=== PATIENT | female | born 1960 | race Caucasian/White ===

== ENCOUNTER 2022-08-18 02:54 | Inpatient (IN) | payer MEDICARE ==
[2022-08-18] MEDS ORDERED: SODIUM CHLORIDE 0.9% 1,000 ML IV STA (03:03)
--- NOTE | 2022-08-18 03:13 | ED ---
General Adult HPI - General Chief complaint: Abdominal Pain Stated complaint: Abdominal Pain Time Seen by Provider: 08/18/22 02:57 Source: patient, EMS, RN notes reviewed, old records reviewed Mode of arrival: EMS Limitations: no limitations - History of Present Illness Initial comments: 62-year-old female presenting with crampy lower abdominal pain. Symptoms began proximally 9 hours prior to presentation. Patient states she's had similar episodes in the past. She had a normal bowel movement just prior to arrival here and no vomiting. Pain comes and goes but is increasing in intensity. This is in her lower abdomen. No upper abdominal pain, no chest pain. No fever. No dysuria or hematuria. - Related Data Allergies Allergy/AdvReac Type Severity Reaction Status Date / Time Sulfa (Sulfonamide Allergy Unknown Verified 08/18/22 03:16 Antibiotics) Review of Systems ROS Statement: Those systems with pertinent positive or pertinent negative responses have been documented in the HPI. ROS Other: All systems not noted in ROS Statement are negative. Past Medical History Past Medical History: Thyroid Disorder History of Any Multi-Drug Resistant Organisms: None Reported Past Surgical History: Cholecystectomy, Hysterectomy, Tonsillectomy Additional Past Surgical History / Comment(s): Knee replaced Past Psychological History: No Psychological Hx Reported Smoking Status: Unknown if ever smoked Past Alcohol Use History: None Reported Past Drug Use History: None Reported General Exam Limitations: no limitations General appearance: alert, in no apparent distress Head exam: Present: atraumatic, normocephalic Eye exam: Present: normal appearance, PERRL ENT exam: Present: normal exam Neck exam: Present: normal inspection. Absent: tenderness, meningismus Respiratory exam: Present: normal lung sounds bilaterally. Absent: respiratory distress, wheezes Cardiovascular Exam: Present: normal rhythm, bradycardia GI/Abdominal exam: Present: soft. Absent: distended, tenderness, guarding, rebound, rigid Extremities exam: Present: normal inspection, normal capillary refill Neurological exam: Present: alert, oriented X3 Psychiatric exam: Present: anxious Skin exam: Present: diaphoretic Course Vital Signs 08/18/22 08/18/22 08/18/22 02:55 03:27 03:32 Temperature 98.5 F Pulse Rate 52 L 68 Respiratory 16 Rate Blood Pressure 94/58 105/58 112/62 O2 Sat by Pulse 97 95 Oximetry 08/18/22 04:12 Temperature Pulse Rate 69 Respiratory 16 Rate Blood Pressure 126/64 O2 Sat by Pulse 97 Oximetry Medical Decision Making - Medical Decision Making Was pt. sent in by a medical professional or institution (DEB Grubbs, FLOORING MACHINE OPERATOR, urgent care, hospital, or halfway...) When possible be specific @ -No Did you speak to anyone other than the patient for history (EMS, parent, family, police, friend...)? What history was obtained from this source @ -No Did you review nursing and triage notes (agree or disagree)? Why? @ -I reviewed and agree with nursing and triage notes Were old charts reviewed (outside hosp., previous admission, EMS record, old EKG, old radiological studies, urgent care reports/EKG's, halfway records)? Report findings @ -No old charts were reviewed Differential Diagnosis (chest pain, altered mental status, abdominal pain women, abdominal pain men, vaginal bleeding, weakness, fever, dyspnea, syncope, headache, dizziness, GI bleed, back pain, seizure, CVA, palpatations, mental health, musculoskeletal)? @ -not applicable EKG interpreted by me (3pts min.). @ -EKG: Sinus rhythm rate of 63, TN interval 159, QRS duration 114, QTC [address] segment elevation. X-rays interpreted by me (1pt min.). @ -None done CT interpreted by me (1pt min.). @ CT showing dilated small bowel with transition point consistent with small bowel obstruction U/S interpreted by me (1pt. min.). @ -None done What testing was considered but not performed or refused? (CT, X-rays, U/S, labs)? Why? @ -None What meds were considered but not given or refused? Why? @ -None Did you discuss the management of the patient with other professionals (professionals i.e. DEB Grubbs, FLOORING MACHINE OPERATOR, lab, RT, psych nurse, oncology social worker, massage therapy instructor, teacher, aerospace engineer officer armament, registered nurse hh case manager)? Give summary @ -Dr. Anderson Was smoking cessation discussed for >3mins.? @ -No Was critical care preformed (if so, how long)? @ -No Were there social determinants of health that impacted care today? How? (Homelessness, low income, unemployed, alcoholism, drug addiction, transportation, low edu. Level, literacy, decrease access to med. care, alf, rehab)? @ -No Was there de-escalation of care discussed even if they declined (Discuss DNR or withdrawal of care, Hospice)? DNR status @ -No What co-morbidities impacted this encounter? (DM, HTN, Smoking, COPD, CAD, Cancer, CVA, ARF, Chemo, Hep., AIDS, mental health diagnosis, sleep apnea, morbid obesity)? @ -None Was patient admitted / discharged? Hospital course, mention meds given and route, prescriptions, significant lab abnormalities, going to OR and other pertinent info. @ 62-year-old female presenting with crampy lower abdominal pain over the past 9 hours. Patient is initially hypotensive and bradycardic, I suspect this is from vagal episode secondary to pain. She becomes normotensive with normal heart rate. She has no vomiting. Normal laboratory testing including CBC, CMP, lactic acid. Urinalysis pending. CT shows dilated small bowel with transition point consistent with obstruction. NG tube will be placed in the emergency department. Patient will be kept nothing by mouth, she'll receive IV fluids and IV pain medication. She'll be admitted to internal medicine with general surgery on consult. Undiagnosed new problem with uncertain prognosis? @ -No Drug Therapy requiring intensive monitoring for toxicity (Heparin, Nitro, Insulin, Cardizem)? @ -No Were any procedures done? @ -No Diagnosis/symptom? @ -[Small bowel obstruction Acute, or Chronic, or Acute on Chronic? @ -Acute Uncomplicated (without systemic symptoms) or Complicated (systemic symptoms)? @ -[Complicated Side effects of treatment? @ -No Exacerbation, Progression, or Severe Exacerbation? @ -No Poses a threat to life or bodily function? How? (Chest pain, USA, NV, pneumonia, PE, COPD, DKA, ARF, appy, cholecystitis, CVA, Diverticulitis, Homicidal, Suicidal, threat to staff... and all critical care pts) @ -[Yes, bowel ischemia, sepsis - Lab Data Result diagrams: 08/18/22 03:25 08/18/22 03:25 Lab Results 08/18/22 08/18/22 08/18/22 Range/Units 03:25 03:25 03:25 WBC 9.2 (3.8-10.6) k/uL RBC 4.41 (3.80-5.40) m/uL Hgb 13.2 (11.4-16.0) gm/dL Hct 40.9 (34.0-46.0) % MCV 92.8 (80.0-100.0) fL MCH 30.0 (25.0-35.0) pg MCHC 32.4 (31.0-37.0) g/dL RDW 14.1 (11.5-15.5) % Plt Count 230 (150-450) k/uL MPV 7.6 Neutrophils % 78 % Lymphocytes % 15 % Monocytes % 3 % Eosinophils % 2 % Basophils % 0 % Neutrophils # 7.2 (1.3-7.7) k/uL Lymphocytes # 1.4 (1.0-4.8) k/uL Monocytes # 0.3 (0-1.0) k/uL Eosinophils # 0.2 (0-0.7) k/uL Basophils # 0.0 (0-0.2) k/uL PT 10.1 (9.0-12.0) sec INR 0.9 (<1.2) APTT 19.1 L (22.0-30.0) sec Sodium 138 (137-145) mmol/L Potassium 4.1 (3.5-5.1) mmol/L Chloride 105 (98-107) mmol/L Carbon Dioxide 26 (22-30) mmol/L Anion Gap 7 mmol/L BUN 16 (7-17) mg/dL Creatinine 0.74 (0.52-1.04) mg/dL Est GFR (CKD-EPI)AfAm >90 (>60 ml/min/1.73 sqM) Est GFR (CKD-EPI)NonAf 88 (>60 ml/min/1.73 sqM) Glucose 167 H (74-99) mg/dL POC Glucose (mg/dL) (70-110) mg/dL POC Glu Line Worker ID Plasma Lactic Acid [place] (0.7-2.0) mmol/L Calcium 9.5 (8.4-10.2) mg/dL Total Bilirubin 1.4 H (0.2-1.3) mg/dL AST 27 (14-36) U/L ALT 32 (4-34) U/L Alkaline Phosphatase 58 (38-126) U/L Total Protein 8.0 (6.3-8.2) g/dL Albumin 3.9 (3.5-5.0) g/dL Amylase 49 (30-110) U/L Lipase 38 (23-300) U/L 08/18/22 08/18/22 Range/Units 03:25 03:26 WBC (3.8-10.6) k/uL RBC (3.80-5.40) m/uL Hgb (11.4-16.0) gm/dL Hct (34.0-46.0) % MCV (80.0-100.0) fL MCH (25.0-35.0) pg MCHC (31.0-37.0) g/dL RDW (11.5-15.5) % Plt Count (150-450) k/uL MPV Neutrophils % % Lymphocytes % % Monocytes % % Eosinophils % % Basophils % % Neutrophils # (1.3-7.7) k/uL Lymphocytes # (1.0-4.8) k/uL Monocytes # (0-1.0) k/uL Eosinophils # (0-0.7) k/uL Basophils # (0-0.2) k/uL PT (9.0-12.0) sec INR (<1.2) APTT (22.0-30.0) sec Sodium (137-145) mmol/L Potassium (3.5-5.1) mmol/L Chloride (98-107) mmol/L Carbon Dioxide (22-30) mmol/L Anion Gap mmol/L BUN (7-17) mg/dL Creatinine (0.52-1.04) mg/dL Est GFR (CKD-EPI)AfAm (>60 ml/min/1.73 sqM) Est GFR (CKD-EPI)NonAf (>60 ml/min/1.73 sqM) Glucose (74-99) mg/dL POC Glucose (mg/dL) 164 H (70-110) mg/dL POC Glu Line Worker ID Limon, Kirsten Plasma Lactic Acid Mayo 1.3 (0.7-2.0) mmol/L Calcium (8.4-10.2) mg/dL Total Bilirubin (0.2-1.3) mg/dL AST (14-36) U/L ALT (4-34) U/L Alkaline Phosphatase (38-126) U/L Total Protein (6.3-8.2) g/dL Albumin (3.5-5.0) g/dL Amylase (30-110) U/L Lipase (23-300) U/L Disposition Clinical Impression: Small bowel obstruction Disposition: ADMITTED IP TO THIS HOSP Condition: Stable Is patient prescribed a controlled substance at d/c from ED?: No Time of Disposition: 04:54
[2022-08-18] MEDS ORDERED: fentaNYL (PF) 50 MCG/ML 2 ML AMP IVP STA (03:26)
[2022-08-18 03:29] LABS: Glucose,Whole Blood 164 mg/dL (70-110)
[2022-08-18 03:38] LABS: Basophils % (A) 0 %; Eosinophils # (A) 0.2 k/uL (0-0.7); Eosinophils % (A) 2 %; HCT 40.9 % (34.0-46.0); HGB 13.2 gm/dL (11.4-16.0); Lymphocytes # (A) 1.4 k/uL (1.0-4.8); Lymphocytes % (A) 15 %; MCHC 32.4 g/dL (31.0-37.0); MCV 92.8 fL (80.0-100.0); Mean Platelet Volume 7.6; Monocytes # (A) 0.3 k/uL (0-1.0); Monocytes % (A) 3 %; Neutrophils # (A) 7.2 k/uL (1.3-7.7); Neutrophils % (A) 78 %; Platelet Count 230 k/uL (150-450); RBC 4.41 m/uL (3.80-5.40); RDW 14.1 % (11.5-15.5); WBC 9.2 k/uL (3.8-10.6)
[2022-08-18 03:42] LABS: ALT 32 U/L (4-34); AST 27 U/L (14-36); African American GFR (CKD) >90 (>60 ml/min/1.73 sqM); Albumin 3.9 g/dL (3.5-5.0); Alkaline Phosphatase 58 U/L (38-126); Amylase 49 U/L (30-110); Anion Gap 7 mmol/L; Blood Urea Nitrogen 16 mg/dL (7-17); Calcium 9.5 mg/dL (8.4-10.2); Carbon Dioxide 26 mmol/L (22-30); Chloride 105 mmol/L (98-107); Glucose 167 mg/dL (74-99); Lipase 38 U/L (23-300); Non-African American GFR(CKD) 88 (>60 ml/min/1.73 sqM); Potassium 4.1 mmol/L (3.5-5.1); Sodium 138 mmol/L (137-145); Total Bilirubin 1.4 mg/dL (0.2-1.3)
[2022-08-18 03:47] LABS: INR 0.9 (<1.2); Prothrombin Time 10.1 sec (9.0-12.0)
[2022-08-18 04:05] LABS: Partial Thromboplastin Time 19.1 sec (22.0-30.0)
--- NOTE | 2022-08-18 04:24 | CT ---
EXAM: CT Abdomen and Pelvis With Intravenous Contrast CLINICAL HISTORY: ITS.REASON CT Reason: abdominal pain TECHNIQUE: Axial computed tomography images of the abdomen and pelvis with intravenous contrast. CTDI is 69.28 mGy and DLP is 3731 mGy-cm. This CT exam was performed using one or more of the following dose reduction techniques: automated exposure control, adjustment of the mA and/or kV according to patient size, and/or use of iterative reconstruction technique. COMPARISON: None FINDINGS: Lung bases: Unremarkable. No mass. No consolidation. ABDOMEN: Liver: Hepatic steatosis. Mild hepatomegaly. Gallbladder and bile ducts: Cholecystectomy. No ductal dilation. Pancreas: Unremarkable. No mass. No ductal dilation. Spleen: Unremarkable. No splenomegaly. Adrenals: Unremarkable. No mass. Kidneys and ureters: Retroaortic left renal vein. No hydronephrosis or obstructing stone. Stomach and bowel: Dilated fluid and gas-filled small bowel loops with transition point in the left lower anterior abdomen, compatible with small bowel obstruction. Decompressed ileal small bowel. Diverticulosis without evidence of diverticulitis. PELVIS: Appendix: Normal appendix. Bladder: Unremarkable. No mass. Reproductive: Unremarkable as visualized. ABDOMEN and PELVIS: Intraperitoneal space: Small amount of interloop fluid and pelvic fluid. No free air. Bones/joints: Mild curvature of the spine. Degenerative changes of the spine. Minimal retrolisthesis of L3 on L4. No acute fracture. No dislocation. Soft tissues: Unremarkable. Vasculature: Phleboliths in the pelvis. Lymph nodes: Unremarkable. No enlarged lymph nodes. IMPRESSION: 1. Dilated fluid and gas-filled small bowel loops with transition point in the left lower anterior abdomen, compatible with small bowel obstruction. 2. Small amount of interloop fluid and pelvic fluid. 3. Hepatic steatosis. Mild hepatomegaly.
[2022-08-18] MEDS ORDERED: HYDROmorphone 0.5 MG/0.5 ML SYRINGE IVP PRN (04:27)
[2022-08-18] MEDS ORDERED: NALOXONE 0.4 MG/ML 1 ML VIAL IV PRN (04:27)
[2022-08-18] MEDS ORDERED: ONDANSETRON 4 MG/2 ML VIAL IVP PRN (04:27)
[2022-08-18] MEDS: SODIUM CHLORIDE 0.9% 1,000 ML IV SCH ×2 (04:48→13:41)
[2022-08-18] MEDS ORDERED: PIPERACILLIN-TAZOBACTAM 3.375 GM in SODIUM CHLORIDE 0.9% 100 ML IVPB STA (04:54)
[2022-08-18 05:12] LABS: Appearance,Urine Clear (Clear); Bilirubin,Urine Negative (Negative); Blood,Urine Negative (Negative); Color,Urine Light Yellow; Glucose,Urine (UA) Negative (Negative); Ketones,Urine Negative (Negative); Leukocyte Esterase,Urine Moderate (Negative); Mucus,Urine Rare /hpf; Nitrite,Urine Negative (Negative); PH, Urine 5.5 (5.0-8.0); Protein,Urine Trace (Negative); RBC,Urine 4 /hpf (0-5); Squamous Epithelial Cell,Urine 4 /hpf (0-4); Urobilinogen,Urine <2.0 mg/dL (<2.0); WBC,Urine 10 /hpf (0-5)
[2022-08-18 05:21] LABS: Specific Gravity,Urine >1.050 (1.001-1.035)
--- NOTE | 2022-08-18 05:30 | XR ---
EXAMINATION TYPE: XR chest 1V portable DATE OF EXAM: 08/18/2022 CLINICAL HISTORY: NG tube placement. TECHNIQUE: Single AP portable upright view of the chest is obtained. COMPARISON: None. FINDINGS: Cardiac silhouette size upper limits of normal. Patchy bibasilar opacity favors atelectati c change. Upper lungs are clear without pneumothorax. Osseous structures are intact. Nasogastric tube is identified, tip cannot be distinctly seen due to portable technique and large body habitus. IMPRESSION: As above. Advise repeat KUB image to further evaluate nasogastric tip.
--- NOTE | 2022-08-18 05:49 | P.HPIM ---
History of Present Illness H&P Date: 08/18/22 The patient is a 62-year-old female with a PMH of hypothyroidism who presents to the emergency room with complaints of abdominal pain and nausea. The patient reports that her symptoms started earlier tonight at around 6 PM suddenly with diffuse severe abdominal discomfort, rated an 8 out of 10, constant, cramping in nature, nonradiating, with no alleviating or exacerbating features. She reports prior history of occasional abdominal cramps with it only lasts for a few minutes and then resolved spontaneously. She states that this time however the pain is much more severe. She reports prior history of cholecystectomy and hysterectomy. She reports nausea without vomiting and reports having a normal bowel movement just prior to arrival. She denied experiencing fever, chills, cough, chest pain, shortness of breath. In the emergency room, CT abdomen and pelvis revealed dilated fluid and gas filled small bowel loops with transition point, consistent with small bowel obstruction. There was also hepatic steatosis with mild hepatomegaly. EKG had revealed sinus rhythm at 63 bpm with no anterior fascicular block and poor R- wave progression as reviewed by me. Laboratory evaluation was remarkable for glucose 167, total bilirubin 0.4, unremarkable UA. ED documentation reviewed and case discussed with ED provider. Review of systems: Pertinent positives and negatives as discussed in HPI, a complete review of systems was performed and all other systems are negative. Physical examination: Vital signs reviewed General: non toxic, no distress, appears at stated age, morbidly obese Derm: no unusual rashes/lesions, warm Head: atraumatic, normocephalic, symmetric Eyes: EOMI, no lid lag, anicteric sclera, pupils equal round reactive to light ENT: Nose and ears atraumatic Neck: No cervical lymphadenopathy, trachea midline, supple Mouth: no lip lesion, mucus membranes moist Cardiovascular: S1S2 reg, no murmur, positive dorsalis pedis pulse bilateral, trace bilateral lower extremity pitting edema Lungs: CTA bilateral, no rhonchi, no rales, no accessory muscle use Abdominal: soft, mild diffuse tenderness, no guarding Ext: muscle strength 5 out of 5 in all 4 extremities grossly, no gross muscle atrophy, no contractures, Neuro: CN II-XI grossly intact, no gross focal neuro deficits Psych: Alert, oriented, appropriate affect Assessment: Small bowel obstruction Hyperglycemia Hypothyroidism Imaging: CT abdomen and pelvis revealed dilated fluid and gas filled small bowel loops with transition point, consistent with small bowel obstruction. There was also hepatic steatosis with mild hepatomegaly. EKG had revealed sinus rhythm at 63 bpm with no anterior fascicular block and poor R-wave progression as reviewed by me. Data Review: Laboratory evaluation was remarkable for glucose 167, total bilirubin 0.4, un remarkable UA. ED documentation reviewed and case discussed with ED provider. Plan: Continue with NGT with suction for decompression Continue with IV fluids with normal saline 130 mL/hr Nothing by mouth Pain control General surgery consulted Check A1C DVT prophylaxis: Heparin subq The patient is admitted with an anticipated greater than 2 midnight stay for evaluation of SBO CODE STATUS: Full Code Discussed with: Patient Anticipated discharge place: Home Past Medical History Past Medical History: Thyroid Disorder History of Any Multi-Drug Resistant Organisms: None Reported Past Surgical History: Cholecystectomy, Hysterectomy, Tonsillectomy Additional Past Surgical History / Comment(s): Knee replaced Past Psychological History: No Psychological Hx Reported Smoking Status: Unknown if ever smoked Past Alcohol Use History: None Reported Past Drug Use History: None Reported - Past Family History Father Family Medical History: Coronary Artery Disease (CAD) Medications and Allergies Allergies Allergy/AdvReac Type Severity Reaction Status Date / Time Sulfa (Sulfonamide Allergy Unknown Verified 08/18/22 03:16 Antibiotics) Physical Exam Vitals: Vital Signs Temp Pulse Resp BP Pulse Ox 08/18/22 04:12 69 16 126/64 97 08/18/22 03:32 68 112/62 95 08/18/22 03:27 105/58 08/18/22 02:55 98.5 F 52 L 16 94/58 97 Intake and Output 08/17/22 08/17/22 08/18/22 14:59 22:59 06:59 Other: Weight 149.685 kg Results CBC & Chem 7: 08/18/22 03:25 08/18/22 03:25 Labs: Abnormal Lab Results - Last 24 Hours (Table) 08/18/22 08/18/22 08/18/22 Range/Units 03:25 03:25 03:26 APTT 19.1 L (22.0-30.0) sec Glucose 167 H (74-99) mg/dL POC Glucose (mg/dL) 164 H (70-110) mg/dL Total Bilirubin 1.4 H (0.2-1.3) mg/dL Ur Specific [place] (1.001-1.035) Urine Protein (Negative) Ur Leukocyte Esterase (Negative) Urine WBC (0-5) /hpf Urine Mucus (None) /hpf 08/18/22 Range/Units 05:00 APTT (22.0-30.0) sec Glucose (74-99) mg/dL POC Glucose (mg/dL) (70-110) mg/dL Total Bilirubin (0.2-1.3) mg/dL Ur Specific [place] >1.050 H (1.001-1.035) Urine Protein Trace H (Negative) Ur Leukocyte Esterase Moderate H (Negative) Urine WBC 10 H (0-5) /hpf Urine Mucus Rare H (None) /hpf
[2022-08-18] MEDS: HYDROmorphone 1 MG/ML 1 ML SYRINGE IVP PRN ×2 (07:34→11:28)
--- NOTE | 2022-08-18 09:55 | P.GSCN ---
History of Present Illness Consult date: 08/18/22 Reason for Consult: Small bowel obstruction History of present illness: This is a 62-year-old female who was admitted through the emergency room with complaints of abdominal pain and nausea. Patient's workup found evidence of a small bowel obstruction. Patient has a transition point in the left lower quadrant. Patient's. History of laparoscopic ostectomy and open hysterectomy. Currently she has minimal abdominal pain and denies any nausea. Her nasogastric tube has bilious output. Past Medical History Past Medical History: Thyroid Disorder History of Any Multi-Drug Resistant Organisms: None Reported Past Surgical History: Cholecystectomy, Hysterectomy, Tonsillectomy Additional Past Surgical History / Comment(s): Knee replaced Past Anesthesia/Blood Transfusion Reactions: No Reported Reaction Past Psychological History: No Psychological Hx Reported Smoking Status: Unknown if ever smoked Past Alcohol Use History: None Reported Past Drug Use History: None Reported - Past Family History Father Family Medical History: Coronary Artery Disease (CAD) Medications and Allergies Allergies Allergy/AdvReac Type Severity Reaction Status Date / Time Sulfa (Sulfonamide Allergy Unknown Verified 08/18/22 03:16 Antibiotics) Surgical - Exam Vital Signs Temp Pulse Resp BP Pulse Ox 98.5 F 52 L 16 94/58 97 08/18/22 02:55 08/18/22 02:55 08/18/22 02:55 08/18/22 02:55 08/18/22 02:55 - General well developed, well nourished, no distress - Eyes PERRL - ENT normal pinna - Neck no masses - Respiratory normal expansion - Cardiovascular Rhythm: regular - Abdomen Mildly distended Abdomen: soft, non tender Results - Labs 08/18/22 03:25 08/18/22 03:25 Abnormal Lab Results - Last 24 Hours (Table) 08/18/22 08/18/22 08/18/22 Range/Units 03:25 03:25 03:26 APTT 19.1 L (22.0-30.0) sec Glucose 167 H (74-99) mg/dL POC Glucose (mg/dL) 164 H (70-110) mg/dL Total Bilirubin 1.4 H (0.2-1.3) mg/dL Ur Specific [place] (1.001-1.035) Urine Protein (Negative) Ur Leukocyte Esterase (Negative) Urine WBC (0-5) /hpf Urine Mucus (None) /hpf 08/18/22 Range/Units 05:00 APTT (22.0-30.0) sec Glucose (74-99) mg/dL POC Glucose (mg/dL) (70-110) mg/dL Total Bilirubin (0.2-1.3) mg/dL Ur Specific [place] >1.050 H (1.001-1.035) Urine Protein Trace H (Negative) Ur Leukocyte Esterase Moderate H (Negative) Urine WBC 10 H (0-5) /hpf Urine Mucus Rare H (None) /hpf Diabetes panel 08/18/22 Range/Units 03:25 Sodium 138 (137-145) mmol/L Potassium 4.1 (3.5-5.1) mmol/L Chloride 105 (98-107) mmol/L Carbon Dioxide 26 (22-30) mmol/L BUN 16 (7-17) mg/dL Creatinine 0.74 (0.52-1.04) mg/dL Glucose 167 H (74-99) mg/dL Calcium 9.5 (8.4-10.2) mg/dL AST 27 (14-36) U/L ALT 32 (4-34) U/L Alkaline Phosphatase 58 (38-126) U/L Total Protein 8.0 (6.3-8.2) g/dL Albumin 3.9 (3.5-5.0) g/dL Calcium panel 08/18/22 Range/Units 03:25 Calcium 9.5 (8.4-10.2) mg/dL Albumin 3.9 (3.5-5.0) g/dL Pituitary panel 08/18/22 Range/Units 03:25 Sodium 138 (137-145) mmol/L Potassium 4.1 (3.5-5.1) mmol/L Chloride 105 (98-107) mmol/L Carbon Dioxide 26 (22-30) mmol/L BUN 16 (7-17) mg/dL Creatinine 0.74 (0.52-1.04) mg/dL Glucose 167 H (74-99) mg/dL Calcium 9.5 (8.4-10.2) mg/dL Adrenal panel 08/18/22 Range/Units 03:25 Sodium 138 (137-145) mmol/L Potassium 4.1 (3.5-5.1) mmol/L Chloride 105 (98-107) mmol/L Carbon Dioxide 26 (22-30) mmol/L BUN 16 (7-17) mg/dL Creatinine 0.74 (0.52-1.04) mg/dL Glucose 167 H (74-99) mg/dL Calcium 9.5 (8.4-10.2) mg/dL Total Bilirubin 1.4 H (0.2-1.3) mg/dL AST 27 (14-36) U/L ALT 32 (4-34) U/L Alkaline Phosphatase 58 (38-126) U/L Total Protein 8.0 (6.3-8.2) g/dL Albumin 3.9 (3.5-5.0) g/dL Assessment and Plan Assessment: Small bowel obstruction. Patient received nasogastric tube decompression. She'll be observed. If her small bowel obstruction does not resolve she may need exploratory laparotomy lysis of adhesions.
[2022-08-18] MEDS ORDERED: DEXTROSE 50% SYRINGE 50 ML IVP PRN ×2 (17:23)
--- NOTE | 2022-08-18 17:29 | P.PN ---
Subjective Progress Note Date: 08/18/22 Hospital course: Patient is a very pleasant 62-year-old female with a past medical history of hypothyroidism. She presented to the emergency department with a chief complaint of diffuse abdominal pain and nausea. She underwent full evaluation in the emergency department. Labs completed and reviewed. CBC unremarkable. Coagulation profile revealing slightly low PTT is 19.1. BMP unremarkable with the exception of mild hyperglycemia with glucose of 167. Lactic acid normal findings of 1.3. Liver profile showing elevated total bili of 1.4 and urinalysis positive for only [address] abdomen and pelvis completed with IV contrast and this revealed dilated fluid and gas filled small bowel loops with transition point in the left lower abdomen compatible with small bowel obstr uction, small amount of interloop fluid and pelvic fluid, as well as hepatic steatosis. EKG also completed showing normal sinus rhythm at 63 bpm with T-wave inversion in leads V2 through V6 upon personal review and interpretation. Patient admitted under our services for small bowel obstruction with consultation to general surgeon. Physical exam: Vital signs reviewed and stable. General: Nontoxic, no distress and appears stated age. Derm: Skin warm and dry, normal coloration for ethnicity. Head: Atraumatic, normocephalic and symmetric. Eyes: EOMs intact, no lid lag, and anicteric sclera Mouth: no lip lesions, mucus membranes moist Cardiovascular: regular rate and rhythm with normal S1S2, no murmur, positive posterior tibial pulses bilaterally, and cap refill < 2 seconds. Lungs: Respirations even, regular, and unlabored on room air. Lungs CTA bilaterally, no rhonchi, no rales, no wheezing, and no accessory muscle usage. GI/: soft, nontender to palpation, no guarding, no appreciable organomegaly. NG tube in place to low intermittent suction with return of bile. Ext: ROM intact. No gross muscle atrophy, no edema, no contractures Neuro: Speech clear, face symmetrical and CN II-XII grossly intact with no noted focal neuro deficits Psych: Alert and oriented to person, place, time, and situation. Appropriate and pleasant affect. Assessment and Plan of Care: Intractable abdominal pain with nausea Small bowel obstruction -Continue NG tube to low intermittent suction -Symptomatic care and pain management -Maintain NPO status, diet to be advanced by general surgeon -Continue with IV fluid hydration with D5.45 % NS at 100 mL per hour. -Order placed for eyqlb-wq-wqve glucose checks every 6 hours while patient remains NPO. -Hypoglycemic protocol initiated. -Gen. surgery following, we'll attempt to treat small bowel obstruction with conservative measures,if unsuccessful patient will need to undergo Exploratory laparotomy with lysis of adhesions. Hypothyroidism -Home medications reviewed and reordered. Patient to continue with levothyroxine 100 g daily. CODE STATUS: Full code DVT prophylaxis: Lovenox Discussed with: Patient, RN, and general surgeon Anticipated discharge date: Clinical course to determine Anticipated discharge place: Home Patient was seen independently by Nurse Pracitioner. This document was prepared using [employer] dictation software. Please allow for errors in clay maker, while rare they do occur. I reviewed the documentation as provided by the BRIAN above, who is the original author of this note. I agree with the documented assessment and plan, with the following changes: none Objective - Vital Signs Vital signs: Vital Signs Temp 97.8 F 08/18/22 07:20 Pulse 75 08/18/22 07:20 Resp 18 08/18/22 07:20 BP 175/93 08/18/22 07:20 Pulse Ox 100 08/18/22 08:48 FiO2 Intake & Output 08/17/22 08/18/22 08/18/22 18:59 06:59 18:59 Output Total 450 1000 Balance -450 -1000 Weight 149.685 kg 149.685 kg Output: Gastric Drainage 1000 Urine 450 - Labs CBC & Chem 7: 08/21/22 07:04 08/21/22 07:04 Labs: Abnormal Lab Results - Last 24 Hours (Table) 08/18/22 08/18/22 08/18/22 Range/Units 03:25 03:25 03:26 APTT 19.1 L (22.0-30.0) sec Glucose 167 H (74-99) mg/dL POC Glucose (mg/dL) 164 H (70-110) mg/dL Total Bilirubin 1.4 H (0.2-1.3) mg/dL Ur Specific [place] (1.001-1.035) Urine Protein (Negative) Ur Leukocyte Esterase (Negative) Urine WBC (0-5) /hpf Urine Mucus (None) /hpf 08/18/22 Range/Units 05:00 APTT (22.0-30.0) sec Glucose (74-99) mg/dL POC Glucose (mg/dL) (70-110) mg/dL Total Bilirubin (0.2-1.3) mg/dL Ur Specific [place] >1.050 H (1.001-1.035) Urine Protein Trace H (Negative) Ur Leukocyte Esterase Moderate H (Negative) Urine WBC 10 H (0-5) /hpf Urine Mucus Rare H (None) /hpf
[2022-08-18] MEDS ORDERED: diphenhydrAMINE 50 MG/ML 1 ML VIAL IVP STA (17:37)
[2022-08-18] MEDS ORDERED: KETOROLAC 15 MG/ML 1 ML VIAL IVP STA (17:37)
[2022-08-18] MEDS ORDERED: PROCHLORPERAZINE INJ 10 MG/2 ML VIAL IVP STA (17:37)
[2022-08-18] MEDS: DEXTROSE 5%-0.45% NACL 1,000 ML IV SCH (17:44)
[2022-08-18] MEDS: ACETAMINOPHEN IV (For NPO) 1,000 MG in EMPTY BAG 1 BAG IVPB PRN (17:45)
[2022-08-18 23:20] LABS: Glucose,Whole Blood 103 mg/dL (70-110)
[2022-08-19 05:38] LABS: Glucose,Whole Blood 113 mg/dL (70-110)
[2022-08-19] MEDS: ACETAMINOPHEN IV (For NPO) 1,000 MG in EMPTY BAG 1 BAG IVPB PRN (05:40)
[2022-08-19] MEDS ORDERED: LEVOTHYROXINE 100 MCG TAB PO SCH (06:30)
[2022-08-19] MEDS: DEXTROSE 5%-0.45% NACL 1,000 ML IV SCH ×2 (08:01→12:06)
[2022-08-19 09:16] LABS: African American GFR (CKD) 107.6 (60.0-200.0); Albumin 3.4 g/dL (3.8-4.9); Albumin/Globulin Ratio 1.06 (1.60-3.17); Anion Gap 6.2 mmol/L (10.00-18.00); BUN/Creat Ratio 13.86 Ratio (12.00-20.00); Blood Urea Nitrogen 9.7 mg/dL (9.0-27.0); Calcium 8.9 mg/dL (8.7-10.3); Carbon Dioxide 27.8 mmol/L (20.0-27.5); Globulin 3.2 g/dL (1.6-3.3); Magnesium 2.3 mg/dL (1.5-2.4); Non-African American GFR(CKD) 92.9 (60.0-200.0); Potassium 3.9 mmol/L (3.5-5.5); Total Bilirubin 1.4 mg/dL (0.30-1.20); Total Protein 6.6 g/dL (6.2-8.2)
[2022-08-19] MEDS: ENOXAPARIN 40 MG/0.4 ML SYRINGE SQ SCH (09:18)
--- NOTE | 2022-08-19 10:31 | P.PN ---
Progress Note - Text Progress Note Date: 08/19/22 Patient feels better today. She had bowel movements and passing flatus yesterday. On exam vital signs are stable. Abdomen soft. Resolving partial small bowel obstruction. Patient will have her diet advanced. To be discharged home tomorrow.
[2022-08-19 11:07] LABS: Glucose,Whole Blood 115 mg/dL (70-110)
[2022-08-19 11:19] LABS: HGB 11.5 g/dL (12.0-15.0); MCHC 31.1 g/dL (32.0-37.0); MCV 96.6 fL (80.0-97.0); Mean Platelet Volume 9.5 fL (9.5-12.2); NRBC Per 100 WBC 0 /100 WBCS (0.0-0.0); Platelet Count 207 X 10*3/uL (140-440); RBC 3.83 X 10*6/uL (4.10-5.20); RDW 14.2 % (11.5-14.5); WBC 5.69 X 10*3/uL (4.50-10.00)
[2022-08-19] MEDS: LEVOTHYROXINE 75 MCG TAB PO SCH (12:05)
[2022-08-19 16:13] LABS: Glucose,Whole Blood 96 mg/dL (70-110)
--- NOTE | 2022-08-19 16:45 | P.PN ---
Subjective Progress Note Date: 08/19/22 Hospital course: Patient is a very pleasant 62-year-old female with a past medical history of hypothyroidism. She presented to the emergency department with a chief complaint of diffuse abdominal pain and nausea. She underwent full evaluation in the emergency department. Labs completed and reviewed. CBC unremarkable. Coagulation profile revealing slightly low PTT is 19.1. BMP unremarkable with the exception of mild hyperglycemia with glucose of 167. Lactic acid normal findings of 1.3. Liver profile showing elevated total bili of 1.4 and urinalysis positive for only [address] abdomen and pelvis completed with IV contrast and this revealed dilated fluid and gas filled small bowel loops with transition point in the left lower abdomen compatible with small bowel obstr uction, small amount of interloop fluid and pelvic fluid, as well as hepatic steatosis. EKG also completed showing normal sinus rhythm at 63 bpm with T-wave inversion in leads V2 through V6 upon personal review and interpretation. Patient admitted under our services for small bowel obstruction with consultation to general surgeon. Physical exam: Patient seen and fully evaluated at bedside this morning. Patient ambulating in room and reports feeling great this morning. NG tube has been removed. Patient reports she is passing flatus and has been ambulating in the halls. She denies having any bowel movement at this time but also denies having any further episodes of nausea or vomiting and tolerating clear liquid diet. Discussed this with general surgeon plan is to increase diet to full liquid to monitor. Vital signs reviewed and stable. General: Nontoxic, no distress and appears stated age. Derm: Skin warm and dry, normal coloration for ethnicity. Head: Atraumatic, normocephalic and symmetric. Eyes: EOMs intact, no lid lag, and anicteric sclera Mouth: no lip lesions, mucus membranes moist Cardiovascular: regular rate and rhythm with normal S1S2, no murmur, positive posterior tibial pulses bilaterally, and cap refill < 2 seconds. Lungs: Respirations even, regular, and unlabored on room air. Lungs CTA bilaterally, no rhonchi, no rales, no wheezing, and no accessory muscle usage. GI/: soft, nontender to palpation, no guarding, no appreciable organomegaly. NG tube in place to low intermittent suction with return of bile. Ext: ROM intact. No gross muscle atrophy, no edema, no contractures Neuro: Speech clear, face symmetrical and CN II-XII grossly intact with no noted focal neuro deficits Psych: Alert and oriented to person, place, time, and situation. Appropriate and pleasant affect. Assessment and Plan of Care: Intractable abdominal pain with nausea Small bowel obstruction -Patient reports passing flatus, no bowel movement yet -Symptomatic care and pain management -NG tube was removed and patient was tolerating clear liquid diet. Discussed with general surgeon recommending advancing diet to full liquid at this time. -Discontinued IV fluid hydration as patient is tolerating oral intake without any difficulties. -Gen. surgery following Hypothyroidism -Home medications reviewed and reordered. Patient to continue with levothyroxine 150 g daily. CODE STATUS: Full code DVT prophylaxis: Lovenox Discussed with: Patient, RN, and general surgeon Anticipated discharge date: Clinical course to determine Anticipated discharge place: Home Patient was seen independently by Nurse Pracitioner. This document was prepared using [employer] dictation software. Please allow for errors in telephone service adviser, while rare they do occur. Karel Mccann NP rendered care for this patient independently, reviewed the findings and plan as documented in the note above. I did not physically speak with or examine the patient on this date. Objective - Vital Signs Vital signs: Vital Signs Temp 97.9 F 08/19/22 02:04 Pulse 61 08/19/22 02:04 Resp 17 08/19/22 02:04 BP 141/79 08/19/22 02:04 Pulse Ox 96 08/19/22 02:04 FiO2 Intake & Output 08/18/22 08/19/22 08/19/22 18:59 06:59 18:59 Output Total 1000 Balance -1000 Weight 149.685 kg Output: Gastric Drainage 1000 Other: # Voids 1 1 - Labs CBC & Chem 7: 08/20/22 05:36 08/20/22 05:36 Labs: Abnormal Lab Results - Last 24 Hours (Table) 08/19/22 Range/Units 05:36 POC Glucose (mg/dL) 113 H (70-110) mg/dL
[2022-08-19 23:43] LABS: Glucose,Whole Blood 91 mg/dL (70-110)
[2022-08-20 06:24] LABS: Glucose,Whole Blood 97 mg/dL (70-110)
[2022-08-20] MEDS: LEVOTHYROXINE 75 MCG TAB PO SCH (06:46)
[2022-08-20] MEDS: ENOXAPARIN 40 MG/0.4 ML SYRINGE SQ SCH (08:07)
--- NOTE | 2022-08-20 09:30 | P.PN ---
Progress Note - Text Progress Note Date: 08/20/22 Patient had several bowel movements last night. She is passing gas. On exam vital signs appear stable. Abdomen soft. Resolving partial small bowel obstruction. Patient will have her diet advanced to regular diet. Anticipate discharge home tomorrow.
[2022-08-20 09:37] LABS: HCT 37.8 % (37.2-46.3); MCH 30.3 pg (27.0-32.0); MCHC 31.7 g/dL (32.0-37.0); MCV 95.5 fL (80.0-97.0); NRBC Per 100 WBC 0 /100 WBCS (0.0-0.0); Platelet Count 204 X 10*3/uL (140-440); RBC 3.96 X 10*6/uL (4.10-5.20); RDW 14.2 % (11.5-14.5); WBC 5.82 X 10*3/uL (4.50-10.00)
[2022-08-20 14:11] LABS: Magnesium 2.2 mg/dL (1.5-2.4)
[2022-08-20 14:21] LABS: African American GFR (CKD) 97.6 (60.0-200.0); Albumin 3.6 g/dL (3.8-4.9); Albumin/Globulin Ratio 0.99 (1.60-3.17); Anion Gap 12.5 mmol/L (10.00-18.00); BUN/Creat Ratio 9.35 Ratio (12.00-20.00); Blood Urea Nitrogen 7.1 mg/dL (9.0-27.0); Calcium 9.3 mg/dL (8.7-10.3); Carbon Dioxide 22.2 mmol/L (20.0-27.5); Globulin 3.6 g/dL (1.6-3.3); Non-African American GFR(CKD) 84.2 (60.0-200.0); Potassium 4.3 mmol/L (3.5-5.5); Total Protein 7.2 g/dL (6.2-8.2)
--- NOTE | 2022-08-20 16:08 | P.PN ---
Subjective Progress Note Date: 08/20/22 Hospital course: Patient is a very pleasant 62-year-old female with a past medical history of hypothyroidism. She presented to the emergency department with a chief complaint of diffuse abdominal pain and nausea. She underwent full evaluation in the emergency department. Labs completed and reviewed. CBC unremarkable. Coagulation profile revealing slightly low PTT is 19.1. BMP unremarkable with the exception of mild hyperglycemia with glucose of 167. Lactic acid normal findings of 1.3. Liver profile showing elevated total bili of 1.4 and urinalysis positive for only [address] abdomen and pelvis completed with IV contrast and this revealed dilated fluid and gas filled small bowel loops with transition point in the left lower abdomen compatible with small bowel obstr uction, small amount of interloop fluid and pelvic fluid, as well as hepatic steatosis. EKG also completed showing normal sinus rhythm at 63 bpm with T-wave inversion in leads V2 through V6 upon personal review and interpretation. Patient admitted under our services for small bowel obstruction with consultation to general surgeon. Physical exam: Patient seen and fully evaluated at bedside this morning. Patient ambulating in room and report feeling well. Patient reports continued episodes of flatus followed by one normal bowel movement and 2 small episodes of diarrhea. She continues to deny any further episodes of nausea or vomiting and has been tolerating full liquid diet. Discussed this with general surgeon, and he recommends advancing diet to regular diet and monitoring patient for an additional night with possible discharge tomorrow morning. Vital signs reviewed and stable. General: Nontoxic, no distress and appears stated age. Derm: Skin warm and dry, normal coloration for ethnicity. Head: Atraumatic, normocephalic and symmetric. Eyes: EOMs intact, no lid lag, and anicteric sclera Mouth: no lip lesions, mucus membranes moist Cardiovascular: regular rate and rhythm with normal S1S2, no murmur, positive posterior tibial pulses bilaterally, and cap refill < 2 seconds. Lungs: Respirations even, regular, and unlabored on room air. Lungs CTA bilaterally, no rhonchi, no rales, no wheezing, and no accessory muscle usage. GI/: soft, nontender to palpation, no guarding, no appreciable organomegaly. NG tube in place to low intermittent suction with return of bile. Ext: ROM intact. No gross muscle atrophy, no edema, no contractures Neuro: Speech clear, face symmetrical and CN II-XII grossly intact with no noted focal neuro deficits Psych: Alert and oriented to person, place, time, and situation. Appropriate and pleasant affect. Assessment and Plan of Care: Intractable abdominal pain with nausea Small bowel obstruction -Patient reports continued episodes of flatus followed by one normal bowel movement and 2 small episodes of diarrhea and continues to deny any further episodes of nausea or vomiting and has been tolerating full liquid diet. -Discussed patient's progress with general surgeon, and he recommends advancing diet to regular diet and monitoring patient for an additional night with possible discharge tomorrow morning. -Reviewed the morning labs. CBC and CMP remain unremarkable with WBC count of 5.82, hemoglobin of 12.0, platelet count of 204, sodium 140, potassium 4.3, chloride 105, bicarb 22.2, and renal function with BUN of 7.1, creatinine 0.8, GFR of 84.2.. -Continue with symptomatic care and pain management Hypothyroidism -Home medications reviewed and reordered. Patient to continue with levothyrox ine 150 g daily. CODE STATUS: Full code DVT prophylaxis: Lovenox Discussed with: Patient, RN, and general surgeon Anticipated discharge date: Clinical course to determine Anticipated discharge place: Home Patient was seen independently by Nurse Pracitioner. This document was prepared using [employer] dictation software. Please allow for errors in ribbon tier, while rare they do occur. Karel Mccann NP rendered care for this patient independently, reviewed the fi ndings and plan as documented in the note above. I did not physically speak with or examine the patient on this date. Objective - Vital Signs Vital signs: Vital Signs Temp 97.3 F L 08/20/22 07:06 Pulse 67 08/20/22 07:06 Resp 16 08/20/22 07:06 BP 140/81 08/20/22 07:06 Pulse Ox 96 08/20/22 07:06 FiO2 Intake & Output 08/19/22 08/20/22 08/20/22 18:59 06:59 18:59 Other: # Voids 2 2 - Labs CBC & Chem 7: 08/20/22 05:36 08/20/22 05:36 Labs: Abnormal Lab Results - Last 24 Hours (Table) 08/19/22 08/19/22 08/19/22 Range/Units 03:49 03:49 11:06 RBC 3.83 L (4.10-5.20) X 10*6/uL Hgb 11.5 L (12.0-15.0) g/dL Hct 37.0 L (37.2-46.3) % MCHC 31.1 L (32.0-37.0) g/dL Carbon Dioxide 27.8 H (20.0-27.5) mmol/L Anion Gap 6.20 L (10.00-18.00) mmol/L Glucose 114 H (70-110) mg/dL POC Glucose (mg/dL) 115 H (70-110) mg/dL Total Bilirubin 1.40 H (0.30-1.20) mg/dL Albumin 3.4 L (3.8-4.9) g/dL Albumin/Globulin Ratio 1.06 L (1.60-3.17) g/dL
[2022-08-21] MEDS: LEVOTHYROXINE 75 MCG TAB PO SCH (07:00)
[2022-08-21 07:43] VITALS: BP 149/87; PULSE 61; RESP 16; TEMP 97.9
[2022-08-21] MEDS: ENOXAPARIN 40 MG/0.4 ML SYRINGE SQ SCH (10:11)
[2022-08-21 10:51] LABS: HCT 38.6 % (37.2-46.3); HGB 12.2 g/dL (12.0-15.0); MCH 30.1 pg (27.0-32.0); MCHC 31.6 g/dL (32.0-37.0); MCV 95.3 fL (80.0-97.0); Mean Platelet Volume 9.2 fL (9.5-12.2); NRBC Per 100 WBC 0 /100 WBCS (0.0-0.0); Platelet Count 224 X 10*3/uL (140-440); RBC 4.05 X 10*6/uL (4.10-5.20); RDW 14.1 % (11.5-14.5); WBC 6.43 X 10*3/uL (4.50-10.00)
--- NOTE | 2022-08-21 10:52 | P.DS ---
Providers Date of admission: 08/18/22 04:29 Expected date of discharge: 08/21/22 Attending physician: Rose Anderson MD Consults: 08/18/22 04:27 Consult Physician Routine Consulting Provider: Cameron Young Consult Reason/Comments: SBO Do you want consulting provider notified?: Yes Primary care physician: Malini Saxena Hospital Course: Discharge Diagnosis: Small bowel obstruction, resolved. Intractable abdominal pain with nausea, secondary to small bowel obstruction and has resolved. Hypothyroidism. Patient to continue with levothyroxine 150 g daily. Hospital Course: Patient is a very pleasant 62-year-old female with a past medical history of hypothyroidism. She presented to the emergency department with a chief complaint of diffuse abdominal pain and nausea. She underwent full evaluation in the emergency department. Labs completed and reviewed. CBC unremarkable. Coagulation profile revealing slightly low PTT is 19.1. BMP unremarkable with the exception of mild hyperglycemia with glucose of 167. Lactic acid normal findings of 1.3. Liver profile showing elevated total bili of 1.4 and urinalysis positive for only [address] abdomen and pelvis completed with IV contrast and this revealed dilated fluid and gas filled small bowel loops with transition point in the left lower abdomen compatible with small bowel obstruction, small amount of interloop fluid and pelvic fluid, as well as hepatic steatosis. EKG also completed showing normal sinus rhythm at 63 bpm with T-wave inversion in leads V2 through V6 upon personal review and interpretation. Patient admitted under our services for small bowel obstruction with consultation to general surgeon. Patient was treated conservatively with IV fluids and NG tube. NG tube was removed and diet was slowly advanced. Patient now tolerating regular diet, reports passing flatus and a total of 3 bowel movements. Patient has no further episodes of nausea or vomiting. Medically, patient is stable and she has also been cleared from general surgery's perspective for outpatient follow-up in their office. Physical exam: Vital signs reviewed and stable. General: Nontoxic, no distress and appears stated age. Derm: Skin warm and dry, normal coloration for ethnicity. Head: Atraumatic, normocephalic and symmetric. Eyes: EOMs intact, no lid lag, and anicteric sclera Mouth: no lip lesions, mucus membranes moist Cardiovascular: regular rate and rhythm with normal S1S2, no murmur, positive posterior tibial pulses bilaterally, and cap refill < 2 seconds. Lungs: Respirations even, regular, and unlabored on room air. Lungs CTA bilaterally, no rhonchi, no rales, no wheezing, and no accessory muscle usage. GI/: soft, nontender to palpation, no guarding, no appreciable organomegaly. NG tube in place to low intermittent suction with return of bile. Ext: ROM intact. No gross muscle atrophy, no edema, no contractures Neuro: Speech clear, face symmetrical and CN II-XII grossly intact with no noted focal neuro deficits Psych: Alert and oriented to person, place, time, and situation. Appropriate and pleasant affect. A total of 37 minutes of time were spent preparing this complex discharge summary. Pt was discharged on 08/21/22 at 10:51 AM Patient was seen independently by Nurse Practitioner. This document was prepared using [employer] dictation software. Please allow for errors in solution designer while rare they do occur. I reviewed the documentation as provided by the BRIAN above, who is the original author of this note. I agree with the documented assessment and plan, with the following changes: none Patient Condition at Discharge: Stable Plan - Discharge Summary Discharge Rx Participant: No New Discharge Prescriptions: Continue Levothyroxine Sodium [Synthroid] 150 mcg PO DAILY Famotidine 40 mg PO DAILY PRN PRN Reason: Heartburn Discontinued Ibuprofen [Motrin] 600 mg PO TID PRN PRN Reason: Pain Discharge Medication List Famotidine 40 mg PO DAILY PRN 08/18/22 [History] Levothyroxine Sodium [Synthroid] 150 mcg PO DAILY 08/18/22 [History] Follow up Appointment(s)/Referral(s): aMlini Saxena DO [Primary Care Provider] - 1-2 days (office busy Please call to schedule appointment ) Cameron Young MD [STAFF PHYSICIAN] - 08/30/22 1:30 pm Patient Instructions/Handouts: High Fiber Diet (DC), Bowel Obstruction (DC) Activity/Diet/Wound Care/Special Instructions: Activity: As tolerated. Take breaks as needed. Diet: Heart healthy and carb consistent diet. Avoid salts, or foods with hidden salts such as canned or boxed foods and frozen dinners. Extra salt makes your heart work harder and traps the fluid in your body for longer. Special Instructions: Take all of your medications as directed and remember to keep all of your doctor's appointments and follow-up as needed. Thank you for allowing us to participate in your care, it was truly a pleasure having you for our patient!!! Discharge Disposition: HOME SELF-CARE
[2022-08-21 11:12] LABS: Magnesium 2.1 mg/dL (1.5-2.4)
[2022-08-21 11:17] LABS: African American GFR (CKD) 107.6 (60.0-200.0); Albumin 3.8 g/dL (3.8-4.9); Albumin/Globulin Ratio 1.09 (1.60-3.17); Anion Gap 7.9 mmol/L (10.00-18.00); BUN/Creat Ratio 20.57 Ratio (12.00-20.00); Blood Urea Nitrogen 14.4 mg/dL (9.0-27.0); Calcium 9.6 mg/dL (8.7-10.3); Carbon Dioxide 29.1 mmol/L (20.0-27.5); Globulin 3.5 g/dL (1.6-3.3); Non-African American GFR(CKD) 92.9 (60.0-200.0); Total Protein 7.3 g/dL (6.2-8.2)
--- NOTE | 2022-08-21 11:18 | P.PN ---
Subjective Progress Note Date: 08/21/22 CHIEF COMPLAINT: Partial small bowel obstruction HISTORY OF PRESENT ILLNESS: Patient reports her abdominal pain has improved. She denies any nausea or vomiting. She is having bowel movements and flatus. She's tolerating a regular diet. Afebrile. PHYSICAL EXAM: VITAL SIGNS: Reviewed. GENERAL: Well-developed in no acute distress. HEENT: No sclera icterus. Extraocular movements grossly intact. Moist buccal mucosa. Head is atraumatic, normocephalic. ABDOMEN: Soft. Nondistended. Nontender. NEUROLOGIC: Alert and oriented. Cranial nerves II through XII grossly intact. ASSESSMENT: 1. Partial small bowel obstruction resolved PLAN: -Patient can be discharged from surgical standpoint -Recommend outpatient follow-up Physician Make Up Girl note has been reviewed by physician. Signing provider agrees with the documented findings, assessment, and plan of care. Objective - Vital Signs Vital signs: Vital Signs Temp 97.9 F 08/21/22 06:45 Pulse 61 08/21/22 06:45 Resp 16 08/21/22 06:45 BP 149/87 08/21/22 06:45 Pulse Ox 96 08/21/22 07:59 FiO2 21 08/21/22 07:59 Intake & Output 08/20/22 08/21/22 08/21/22 18:59 06:59 18:59 Other: Voiding Method Toilet # Voids 3 1 # Bowel Movements 4 - Labs CBC & Chem 7: 08/21/22 07:04 08/20/22 05:36 Labs: Abnormal Lab Results - Last 24 Hours (Table) 08/20/22 08/21/22 Range/Units 05:36 07:04 RBC 4.05 L (4.10-5.20) X 10*6/uL MCHC 31.6 L (32.0-37.0) g/dL MPV 9.2 L (9.5-12.2) fL BUN 7.1 L (9.0-27.0) mg/dL BUN/Creatinine Ratio 9.35 L (12.00-20.00) Ratio Albumin 3.6 L (3.8-4.9) g/dL Globulin 3.6 H (1.6-3.3) g/dL Albumin/Globulin Ratio 0.99 L (1.60-3.17) g/dL
== END 2022-08-21 12:16 | disposition home or self-care (01) | DRG 389 ==
LOC: EC 02:54 → 4SSUR 04:29
PROVIDERS: ADMIT Internal Medicine; ATTEND Internal Medicine
PROC: 0D9670Z Drainage of Stomach with Drainage Device, Via Natural or Artificial Opening (ICD-10-PCS; principal; 2022-08-18)
DX: K56.600 Partial intestinal obstruction, unspecified as to cause (principal); Z68.43 Body mass index [BMI] 50.0-59.9, adult; R16.0 Hepatomegaly, not elsewhere classified; E66.01 Morbid (severe) obesity due to excess calories; R73.9 Hyperglycemia, unspecified; E03.9 Hypothyroidism, unspecified; K76.0 Fatty (change of) liver, not elsewhere classified; Z96.659 Presence of unspecified artificial knee joint; Z88.2 Allergy status to sulfonamides; Z28.310 Unvaccinated for COVID-19; Z79.890 Hormone replacement therapy
CPT/HCPCS: 36415; 71045; 74177; 80053; 81001; 82150; 83036; 83605; 83690; 83735; 85025; 85027; 85610; 85730; 93005; 94760; 96361; 96374; 99285